=== PATIENT | male | born 1940 | race Hispanic/Latino ===

== ENCOUNTER 2017-10-22 08:00 | Inpatient (IN) | payer OTHER, MEDICARE ==
[2017-10-18 10:06] VITALS: BP 123/51
[2017-10-18 10:13] LABS: BASOPHILS % (AUTO) 0.5 % (0.0-5.0); EOSINOPHILS % (AUTO) 2.7 % (0.0-8.0); HEMATOCRIT 40.9 % (42-54); LYMPHOCYTES % (AUTO) 20.2 % (21.0-51.0); MEAN CORPUSCULAR HEMOGLOBIN 33.1 pg (27.0-33.0); MEAN CORPUSCULAR HGB CONC 37.1 g/dL (32.0-36.0); MEAN CORPUSCULAR VOLUME 89.1 fL (79-99); MONOCYTES % (AUTO) 6.3 % (3.0-13.0); NEUTROPHILS % (AUTO) 70.3 % (40.0-77.0); NUCLEATED RED BLOOD CELLS 0.1 % (0.0-0.19); PLATELET COUNT (AUTO) 128 K/uL (130-400); RED BLOOD CELL COUNT(AUTO) 4.59 MIL/uL (4.50-6.20); RED CELL DISTRIBUTION WIDTH 13.7 % (11.0-15.5); WHITE BLOOD COUNT (AUTO) 7.3 K/uL (4.8-10.8)
[2017-10-18 10:19] LABS: CREATININE 0.8 mg/dL (0.5-1.5); POTASSIUM 4.2 mmol/L (3.5-5.1)
[2017-10-18 10:46] LABS: INR 0.98 (0.85-1.15); PARTIAL THROMBOPLASTIN TIME 29.8 SEC (26.3-35.5); PROTHROMBIN TIME 10.3 SEC (9.6-11.6)
[2017-10-18 11:06] LABS: APPEARANCE,URINE Clear (CLEAR); BILIRUBIN,URINE Negative (NEGATIVE); COLOR,URINE Yellow (YELLOW); GLUCOSE, URINE (UA) Negative (NEGATIVE); KETONES,URINE Negative (NEGATIVE); LEUKOCYTE ESTERASE ,URINE Negative (NEGATIVE); NITRATE,URINE Negative (NEGATIVE); OCCULT BLOOD,URINE Negative (NEGATIVE); PROTEIN,URINE Negative (NEGATIVE)
[2017-10-22] VITALS (10 sets, daily range): BP systolic 109–130; BP diastolic 44–80
[~2017-10-22] VITALS: Ht 167.6 cm; Wt 77.2 kg
[~2017-10-22 08:00] MED LIST: ALFU10TA18 PO; ASPI-1181 PO; ATOR40TA71 PO; DEXAMETHASONE SOD PHOSPHATE 10MG/ML 1ML VIAL ONE; FENTANYL CITRATE PF 50 MCG/1 ML 2ML VIAL ONE; FINA5TAB41 PO; GLYB5TAB8 PO; GLYCOPYRROLATE 0.2 MG/ML 5 ML VIAL ONE; LIDOCAINE PF 2% 5ML ABBOJECT ONE; LISI30TA4 PO; METF500T6 PO; MIDAZOLAM HCL 1 MG/ML 2ML VIAL ONE; NEOSTIGMINE 5MG/5ML SYR IV ONE; ONDANSETRON HCL 4 MG/2 ML VIAL ONE; PROPOFOL 10 MG/ML 20ML VIAL IV ONE; SITA100T12 PO; TAMS0.4C32 PO
[2017-10-22] MEDS ORDERED: SODIUM CHLORIDE 0.9% 1000ML 1,000 ML IV ONE (08:54)
[2017-10-22] MEDS ORDERED: INSULIN HUMULIN R 100 UNIT/ML 3ML SQ SCH (09:30)
[2017-10-22] MEDS ORDERED: INSULIN HUMULIN R 100 UNIT/ML 3ML ONE (09:46)
[2017-10-22] MEDS ORDERED: ALBUMIN (HUMAN) 25% 50 ML IV ONE (12:00)
[2017-10-22] MEDS ORDERED: HEPARIN SODIUM 1000UNIT/ML 10ML VIAL IV ONE (12:00)
[2017-10-22] MEDS ORDERED: CALCIUM CHLORIDE 100 MG/ML 10 ML SYG IVP ONE (12:00)
[2017-10-22] MEDS ORDERED: AMINOCAPROIC ACID 250 MG/ML 20 ML VIAL IV ONE (12:00)
[2017-10-22] MEDS ORDERED: SODIUM BICARB 8.4% 50ML SYRINGE IVP ONE (12:00)
[2017-10-22] MEDS ORDERED: MAGNESIUM SULFATE 1 GM/2 ML VIAL IM ONE (12:00)
[2017-10-22] MEDS ORDERED: ISOVUE-370 50ML VIAL IV ONE (16:29)
[2017-10-22] MEDS ORDERED: NITROGLYCERIN 5 MG/ML 10 ML VIAL IV ONE (16:29)
[2017-10-22] MEDS ORDERED: LIDOCAINE HCL 2% 20ML ONE (16:29)
[2017-10-22] MEDS ORDERED: IOPAMIDOL-370 100 ML VIAL IV ONE (16:29)
[2017-10-22] MEDS ORDERED: HEPARIN SODIUM 1000UNIT/ML 10ML VIAL ONE (16:29)
[2017-10-22] MEDS ORDERED: DiphenhydrAMINE HCL 50 MG/ML VIAL ONE (16:56)
[2017-10-22] MEDS ORDERED: METHYLPREDNISOLONE SOD SUCC 125MG/2ML VIAL ONE (16:56)
[2017-10-22] MEDS ORDERED: SODIUM CHLORIDE 0.9% 1000ML 1,000 ML IV SCH ×2 (17:23→18:00)
[2017-10-22] MEDS ORDERED: DEXTROSE 50%-WATER 50 ML DISP.SYRIN IV PRN ×2 (18:30→22:00)
[2017-10-22] MEDS ORDERED: GLUCAGON 1MG KIT 1 MG ML IM PRN (18:30)
[2017-10-23] MEDS: INSULIN HUMULIN R 100 UNIT/ML 3ML SQ SCH ×4 (00:23→22:19)
[2017-10-23 04:28] VITALS: BP 111/63
[2017-10-23 07:00] VITALS: BP 132/63
[2017-10-23 09:57] LABS: HEMOGLOBIN A1C 5.9 % (4.0-6.0)
[2017-10-23 10:55] LABS: CREATININE 0.9 mg/dL (0.5-1.5); POTASSIUM 4.1 mmol/L (3.5-5.1)
[2017-10-23 11:00] VITALS: BP 137/59
[2017-10-23] MEDS ORDERED: CEFUROXIME SODIUM 1.5 GM VIAL IVP SCH (11:00)
[2017-10-23] MEDS: LINAGLIPTIN 5 MG TABLET PO SCH (11:06)
[2017-10-23 11:33] LABS: CHOLESTEROL 94 mg/dL (<200); HDL CHOLESTEROL 51 mg/dL (29-71); LDL DIRECT 41 mg/dL (0-99); TRIGLYCERIDES 47 mg/dL (30-200)
[2017-10-23 16:00] VITALS: BP 122/61
[2017-10-23 20:03] VITALS: BP 149/67
[2017-10-23] MEDS: FINASTERIDE 5 MG TABLET PO SCH (20:11)
[2017-10-23] MEDS: ATORVASTATIN CALCIUM 40 MG TABLET PO SCH (20:11)
[2017-10-23] MEDS: TAMSULOSIN HCL 0.4 MG CAP.ER.24H PO SCH (20:12)
[2017-10-23] MEDS: ***HM*** (Alfuzosin HCl 10 MG) PO SCH (21:00)
[2017-10-24] VITALS (12 sets, daily range): BP systolic 88–162; BP diastolic 42–97
[2017-10-24 03:54] LABS: HEMATOCRIT 36.1 % (42-54); MEAN CORPUSCULAR HEMOGLOBIN 33.9 pg (27.0-33.0); MEAN CORPUSCULAR HGB CONC 38.4 g/dL (32.0-36.0); MEAN CORPUSCULAR VOLUME 88.2 fL (79-99); PLATELET COUNT (AUTO) 132 K/uL (130-400); RED BLOOD CELL COUNT(AUTO) 4.09 MIL/uL (4.50-6.20); RED CELL DISTRIBUTION WIDTH 13.6 % (11.0-15.5); WHITE BLOOD COUNT (AUTO) 9.7 K/uL (4.8-10.8)
[2017-10-24 04:01] LABS: POTASSIUM 4.9 mmol/L (3.5-5.1)
[2017-10-24] MEDS ORDERED: CEFUROXIME SODIUM 1.5 GM VIAL IVP SCH (05:00)
[2017-10-24] MEDS: INSULIN HUMULIN R 100 UNIT/ML 3ML SQ SCH ×4 (06:01→20:16)
[2017-10-24] MEDS: ASPIRIN 81 MG EC TAB PO SCH (09:00)
[2017-10-24] MEDS ORDERED: LISINOPRIL 10 MG TABLET PO SCH (09:00)
[2017-10-24] MEDS ORDERED: CEFUROXIME 1.5GM+NS 100ML 100 ML IV SCH (11:00)
[2017-10-24] MEDS: LINAGLIPTIN 5 MG TABLET PO SCH (12:00)
[2017-10-24] MEDS ORDERED: SODIUM CHLORIDE 0.9% 1000ML 1,000 ML IV ONE ×2 (13:26→16:56)
[2017-10-24] MEDS ORDERED: MIDAZOLAM HCL 1 MG/ML 2ML VIAL ONE (13:48)
[2017-10-24] MEDS ORDERED: FENTANYL CITRATE PF 50 MCG/1 ML 2ML VIAL ONE (13:49)
[2017-10-24] MEDS ORDERED: PROPOFOL 1000 MG/100 ML 100 ML IV ONE (13:50)
[2017-10-24] MEDS ORDERED: NOREPINEPHRINE BITARTRATE 1 MG/1 ML ML IV ONE ×2 (13:51→15:07)
[2017-10-24] MEDS ORDERED: GLYCOPYRROLATE 0.2 MG/ML 5 ML VIAL ONE (13:51)
[2017-10-24] MEDS ORDERED: AMINOCAPROIC ACID 250 MG/ML 20 ML VIAL IV ONE (13:51)
[2017-10-24] MEDS ORDERED: ROCURONIUM BROMIDE 10MG/1ML 5ML VL ONE (13:51)
[2017-10-24] MEDS ORDERED: PROTAMINE SULFATE 10 MG/ML 25ML VIAL IV ONE (13:51)
[2017-10-24] MEDS ORDERED: PROPOFOL 10 MG/ML 20ML VIAL IV ONE (13:51)
[2017-10-24] MEDS ORDERED: NEOSTIGMINE 5MG/5ML SYR IV ONE (13:51)
[2017-10-24] MEDS ORDERED: LIDOCAINE PF 2% 5ML ABBOJECT ONE (13:51)
[2017-10-24] MEDS ORDERED: ESMOLOL HCL 10 MG/ML 10 ML VIAL ONE (13:51)
[2017-10-24] MEDS ORDERED: HEPARIN SODIUM 1000UNIT/ML 10ML VIAL ONE (13:51)
[2017-10-24] MEDS ORDERED: MILRINONE-D5W 20 MG/100 ML 100 ML IV ONE (13:51)
[2017-10-24] MEDS ORDERED: EPINEPHRINE 1 MG/ML AMPULE ONE (13:51)
[2017-10-24] MEDS ORDERED: MIDAZOLAM HCL 1 MG/ML 5ML VIAL ONE (13:52)
[2017-10-24] MEDS ORDERED: NITROGLYCERIN 50 MG/D5% WATER 1 BOT ONE (13:55)
[2017-10-24] MEDS ORDERED: THROMBIN-JMI 5000 UNIT/VIAL TP ONE (14:31)
[2017-10-24] MEDS ORDERED: DELNIDO FORMULA 1 BAG IV ONE ×2 (14:32)
[2017-10-24] MEDS ORDERED: OCTYL 2-CYANOACRYLATE 1 EACH TP ONE (14:50)
[2017-10-24] MEDS ORDERED: BACITRACIN 50,000 UNIT VIAL ONE (14:50)
[2017-10-24 15:00] LABS: ABG BASE EXCESS -3.5 mmol/L (-2.0-3.0); ABG HCO3 20.2 mmol/L (21.0-28.0); ABG OXYGEN SATURATION 98.9 % (95.0-99.0); ABG PCO2 33 mmHg (35-48)
[2017-10-24] MEDS ORDERED: FENTANYL CITRATE PF 50 MCG/1 ML 5ML AMP IV ONE ×3 (15:00→17:20)
[2017-10-24 16:11] LABS: ABG BASE EXCESS -5.9 mmol/L (-2.0-3.0); ABG HCO3 21.1 mmol/L (21.0-28.0); ABG OXYGEN SATURATION 98.8 % (95.0-99.0); ABG PCO2 48 mmHg (35-48)
[2017-10-24 16:31] LABS: ABG BASE EXCESS 7.5 mmol/L (-2.0-3.0); ABG OXYGEN SATURATION 98.9 % (95.0-99.0); ABG PCO2 44 mmHg (35-48)
[2017-10-24] MEDS ORDERED: INSULIN HUMULIN R 100 UNIT/ML 3ML ONE (16:38)
[2017-10-24 17:03] LABS: ABG BASE EXCESS 1.9 mmol/L (-2.0-3.0); ABG HCO3 25.2 mmol/L (21.0-28.0); ABG OXYGEN SATURATION 98.5 % (95.0-99.0); ABG PCO2 35 mmHg (35-48)
[2017-10-24] MEDS ORDERED: CEFUROXIME SODIUM 1.5 GM VIAL ONE (17:44)
[2017-10-24 17:47] LABS: ABG BASE EXCESS -5.1 mmol/L (-2.0-3.0); ABG HCO3 20.1 mmol/L (21.0-28.0); ABG OXYGEN SATURATION 99.3 % (95.0-99.0); ABG PCO2 38 mmHg (35-48)
[2017-10-24] MEDS ORDERED: SODIUM BICARB 50MEQ 50ML VIAL ONE ×3 (17:49→21:51)
[2017-10-24] MEDS ORDERED: PROTAMINE SULFATE 10 MG/ML 5 ML VIAL ONE (17:52)
[2017-10-24 18:45] LABS: ABG BASE EXCESS -0.3 mmol/L (-2.0-3.0); ABG HCO3 23.1 mmol/L (21.0-28.0); ABG OXYGEN SATURATION 97.6 % (95.0-99.0); ABG PCO2 34 mmHg (35-48)
[2017-10-24] MEDS ORDERED: SODIUM CHLORIDE 0.9% 500ML 500 ML IV SCH (18:48)
[2017-10-24 18:51] LABS: HEMATOCRIT 32.9 % (42-54); MEAN CORPUSCULAR HEMOGLOBIN 33.5 pg (27.0-33.0); MEAN CORPUSCULAR HGB CONC 37.6 g/dL (32.0-36.0); PLATELET COUNT (AUTO) 131 K/uL (130-400); RED CELL DISTRIBUTION WIDTH 13.7 % (11.0-15.5); WHITE BLOOD COUNT (AUTO) 22.3 K/uL (4.8-10.8)
[2017-10-24] MEDS ORDERED: SODIUM CHLORIDE 0.9% 250 ML IV PRN (19:00)
[2017-10-24] MEDS ORDERED: MORPHINE SULFATE 2 MG/ML 1ML SYG IV PRN (19:00)
[2017-10-24] MEDS ORDERED: SODIUM BICARB 8.4% 50ML SYRINGE IV PRN (19:00)
[2017-10-24] MEDS ORDERED: ALBUMIN (HUMAN) 5% 250 ML IV PRN (19:00)
[2017-10-24] MEDS ORDERED: MAGNESIUM 2GM PREMIX 50ML 50 ML IV PRN (19:00)
[2017-10-24] MEDS ORDERED: ACETAMINOPHEN 650 MG SUPPOSITORY RC PRN (19:00)
[2017-10-24] MEDS ORDERED: ONDANSETRON HCL MDV 20ML 2 MG/ML VIAL IV PRN (19:00)
[2017-10-24] MEDS ORDERED: SODIUM CHLORIDE 0.9% 1000ML 1,000 ML IV SCH (19:00)
[2017-10-24] MEDS ORDERED: DEXTROSE 50%-WATER 50 ML DISP.SYRIN IV PRN (19:00)
[2017-10-24] MEDS ORDERED: ACETAMINOPHEN 325 MG TAB PO PRN (19:00)
[2017-10-24] MEDS ORDERED: MORPHINE SULFATE 4 MG/1ML SYG IV PRN (19:00)
[2017-10-24] MEDS ORDERED: CALCIUM GLUCONATE 1 GM in SODIUM CHLORIDE 0.9% 50 ML IV PRN (19:00)
[2017-10-24] MEDS ORDERED: NICARDIPINE HCL 100 MG in SODIUM CHLORIDE 0.9% 100 ML IV PRN (19:00)
[2017-10-24] MEDS ORDERED: PROPOFOL 1000 MG/100 ML 100 ML IV PRN (19:00)
[2017-10-24] MEDS ORDERED: NITROGLYCERIN 50 MG/D5% WATER 250 BOT IV SCH (19:00)
[2017-10-24] MEDS ORDERED: POTASSIUM PHOS 15 mMOL+NS250ML 250 ML IV PRN (19:00)
[2017-10-24] MEDS ORDERED: AMINOCAPROIC ACID 15,000 MG in SODIUM CHLORIDE 0.9% 250 ML IV SCH (19:00)
[2017-10-24] MEDS ORDERED: NOREPINEPHRINE 4MG/NS 250ML 250 ML IV SCH (19:00)
[2017-10-24] MEDS ORDERED: HYDROCODONE/ACETAMINOPHEN 5/325 MG TAB PO PRN (19:00)
[2017-10-24] MEDS ORDERED: SODIUM CHLORIDE 0.9% 10 ML VIAL IVP PRN (19:00)
[2017-10-24] MEDS ORDERED: GLUCAGON 1MG KIT 1 MG ML IM PRN (19:00)
[2017-10-24 19:03] LABS: CREATININE 0.8 mg/dL (0.5-1.5); MAGNESIUM 2.9 mg/dL (1.80-2.40); PHOSPHORUS 3.9 mg/dL (2.5-4.9); POTASSIUM 3.8 mmol/L (3.5-5.1)
[2017-10-24] MEDS ORDERED: POTASSIUM CHLORIDE 20MEQ/100ML 100 ML IV ONE (19:03)
[2017-10-24 19:59] LABS: ABG HCO3 24.8 mmol/L (21.0-28.0); ABG OXYGEN SATURATION 97.2 % (95.0-99.0); ABG PCO2 37 mmHg (35-48)
[2017-10-24] MEDS: INSULIN REGULAR, HUMAN 3ML 100 UNIT in SODIUM CHLORIDE 0.9% 99 ML IV SCH ×2 (20:14)
[2017-10-24] MEDS: FAMOTIDINE/PF 20 MG/2 ML VIAL IV SCH (20:15)
[2017-10-24] MEDS: TAMSULOSIN HCL 0.4 MG CAP.ER.24H PO SCH (20:15)
[2017-10-24] MEDS: ***HM*** (Alfuzosin HCl 10 MG) PO SCH (20:15)
[2017-10-24] MEDS: FINASTERIDE 5 MG TABLET PO SCH (20:16)
[2017-10-24] MEDS: ATORVASTATIN CALCIUM 40 MG TABLET PO SCH (20:16)
[2017-10-24] MEDS ORDERED: ALBUMIN (HUMAN) 5% 250 ML IV ONE (21:39)
[2017-10-24 21:50] LABS: ABG BASE EXCESS -2.7 mmol/L (-2.0-3.0); ABG HCO3 21.4 mmol/L (21.0-28.0); ABG OXYGEN SATURATION 97.7 % (95.0-99.0); ABG PCO2 35 mmHg (35-48)
[2017-10-24] MEDS ORDERED: CALCIUM GLUCONATE 1 GM/10 ML VIAL IV ONE (21:51)
[2017-10-24] MEDS: POTASSIUM CHLORIDE 20MEQ/100ML 100 ML IV PRN (23:27)
[2017-10-24 23:55] LABS: ABG BASE EXCESS -2.9 mmol/L (-2.0-3.0); ABG HCO3 21.8 mmol/L (21.0-28.0); ABG OXYGEN SATURATION 97.8 % (95.0-99.0); ABG PCO2 38 mmHg (35-48)
[2017-10-25] VITALS (28 sets, daily range): BP systolic 101–156; BP diastolic 39–69
[2017-10-25] MEDS: POTASSIUM CHLORIDE 20MEQ/100ML 100 ML IV PRN
[2017-10-25 01:18] LABS: ABG BASE EXCESS -5.1 mmol/L (-2.0-3.0); ABG HCO3 18.9 mmol/L (21.0-28.0); ABG OXYGEN SATURATION 97.3 % (95.0-99.0); ABG PCO2 32 mmHg (35-48)
[2017-10-25] MEDS ORDERED: SODIUM BICARB 50MEQ 50ML VIAL ONE (01:19)
[2017-10-25] MEDS ORDERED: ALBUMIN (HUMAN) 5% 250 ML IV ONE (01:52)
[2017-10-25] MEDS: CEFUROXIME SODIUM 1.5 GM VIAL IVP SCH ×2 (03:16→15:03)
[2017-10-25] MEDS ORDERED: [UNRECOGNIZED DRUG - OTHER] IV SCH (04:00)
[2017-10-25] MEDS ORDERED: CEFUROXIME 1.5 GM IV SCH (04:00)
[2017-10-25 04:06] LABS: HEMATOCRIT 28.6 % (42-54); MEAN CORPUSCULAR HEMOGLOBIN 32.4 pg (27.0-33.0); MEAN CORPUSCULAR HGB CONC 37.1 g/dL (32.0-36.0); MEAN CORPUSCULAR VOLUME 87.3 fL (79-99); PLATELET COUNT (AUTO) 114 K/uL (130-400); RED BLOOD CELL COUNT(AUTO) 3.27 MIL/uL (4.50-6.20); RED CELL DISTRIBUTION WIDTH 13.8 % (11.0-15.5); WHITE BLOOD COUNT (AUTO) 21.1 K/uL (4.8-10.8)
[2017-10-25 04:16] LABS: MAGNESIUM 2.3 mg/dL (1.80-2.40); PHOSPHORUS 2.5 mg/dL (2.5-4.9); POTASSIUM 4.5 mmol/L (3.5-5.1)
[2017-10-25 04:56] LABS: ABG BASE EXCESS 4.3 mmol/L (-2.0-3.0); ABG HCO3 27.9 mmol/L (21.0-28.0); ABG OXYGEN SATURATION 96.4 % (95.0-99.0); ABG PCO2 38 mmHg (35-48)
[2017-10-25] MEDS ORDERED: CALCIUM GLUCONATE 1 GM/10 ML VIAL IV ONE (06:08)
[2017-10-25] MEDS: INSULIN HUMULIN R 100 UNIT/ML 3ML SQ SCH ×4 (07:30→21:00)
[2017-10-25] MEDS: ASPIRIN 81 MG EC TAB PO SCH (08:30)
[2017-10-25] MEDS: HYDROCODONE/ACETAMINOPHEN 5/325 MG TAB PO PRN ×4 (08:30→22:26)
[2017-10-25] MEDS: FAMOTIDINE/PF 20 MG/2 ML VIAL IV SCH ×2 (08:32→20:24)
[2017-10-25] MEDS: INSULIN REGULAR, HUMAN 3ML 100 UNIT in SODIUM CHLORIDE 0.9% 99 ML IV SCH ×2 (14:59)
[2017-10-25] MEDS: FINASTERIDE 5 MG TABLET PO SCH (20:24)
[2017-10-25] MEDS: TAMSULOSIN HCL 0.4 MG CAP.ER.24H PO SCH (20:24)
[2017-10-25] MEDS: ATORVASTATIN CALCIUM 40 MG TABLET PO SCH (20:24)
[2017-10-25] MEDS: ***HM*** (Alfuzosin HCl 10 MG) PO SCH (21:00)
[2017-10-26] VITALS (22 sets, daily range): BP systolic 95–154; BP diastolic 41–98
[2017-10-26] MEDS ORDERED: METOPROLOL TARTRATE 1 MG/ML 5ML VIAL IV ONE ×2 (03:38→03:52)
[2017-10-26] MEDS ORDERED: DEXTROSE 5%-WATER 500 ML IV ONE (03:54)
[2017-10-26 04:04] LABS: CREATININE 0.8 mg/dL (0.5-1.5); POTASSIUM 4.2 mmol/L (3.5-5.1)
[2017-10-26 04:18] LABS: MEAN CORPUSCULAR VOLUME 89.1 fL (79-99); RED CELL DISTRIBUTION WIDTH 13.9 % (11.0-15.5); WHITE BLOOD COUNT (AUTO) 13.8 K/uL (4.8-10.8)
[2017-10-26] MEDS ORDERED: AMIODARONE HCL 150 MG in DEXTROSE 5%-WATER 100 ML IV SCH (04:30)
[2017-10-26] MEDS ORDERED: AMIODARONE HCL 900 MG in DEXTROSE 5%-WATER 500 ML IV SCH (04:30)
[2017-10-26] MEDS ORDERED: METOPROLOL TARTRATE 1 MG/ML 5ML VIAL IV SCH (04:30)
[2017-10-26] MEDS: METOPROLOL TARTRATE 1 MG/ML 5ML VIAL IV SCH (04:30)
[2017-10-26] MEDS ORDERED: AMIODARONE HCL 50 MG/ML 3 ML VIAL ONE (04:38)
[2017-10-26] MEDS ORDERED: SODIUM CHLORIDE 0.9% 100 ML IV ONE (04:53)
[2017-10-26 05:01] LABS: PLATELET COUNT (AUTO) 96 K/uL (130-400)
[2017-10-26] MEDS: CEFUROXIME SODIUM 1.5 GM VIAL IVP SCH (05:10)
[2017-10-26] MEDS: INSULIN HUMULIN R 100 UNIT/ML 3ML SQ SCH ×4 (07:30→21:00)
[2017-10-26] MEDS: FAMOTIDINE/PF 20 MG/2 ML VIAL IV SCH ×2 (08:06→20:55)
[2017-10-26] MEDS: METOPROLOL TARTRATE 25 MG TAB PO SCH ×2 (08:06→20:55)
[2017-10-26] MEDS: ASPIRIN 81 MG EC TAB PO SCH (08:06)
[2017-10-26] MEDS: TAMSULOSIN HCL 0.4 MG CAP.ER.24H PO SCH (20:55)
[2017-10-26] MEDS: FINASTERIDE 5 MG TABLET PO SCH (20:55)
[2017-10-26] MEDS: ATORVASTATIN CALCIUM 40 MG TABLET PO SCH (20:55)
[2017-10-26] MEDS: ***HM*** (Alfuzosin HCl 10 MG) PO SCH (21:00)
[2017-10-27 04:05] VITALS: BP 109/54
[2017-10-27 04:25] LABS: HEMATOCRIT 22.6 % (42-54); MEAN CORPUSCULAR HEMOGLOBIN 32.5 pg (27.0-33.0); MEAN CORPUSCULAR HGB CONC 36.2 g/dL (32.0-36.0); MEAN CORPUSCULAR VOLUME 89.9 fL (79-99); PLATELET COUNT (AUTO) 42 K/uL (130-400); RED BLOOD CELL COUNT(AUTO) 2.51 MIL/uL (4.50-6.20); RED CELL DISTRIBUTION WIDTH 13.2 % (11.0-15.5); WHITE BLOOD COUNT (AUTO) 13.1 K/uL (4.8-10.8)
[2017-10-27] MEDS: METOPROLOL TARTRATE 1 MG/ML 5ML VIAL IV SCH (04:30)
[2017-10-27 04:40] LABS: CREATININE 0.8 mg/dL (0.5-1.5)
[2017-10-27] MEDS: INSULIN HUMULIN R 100 UNIT/ML 3ML SQ SCH ×4 (06:49→21:32)
[2017-10-27 07:01] VITALS: BP 115/53
[2017-10-27] MEDS: METOPROLOL TARTRATE 25 MG TAB PO SCH ×2 (09:00→21:30)
[2017-10-27] MEDS: ASPIRIN 81 MG EC TAB PO SCH (09:00)
[2017-10-27 11:00] VITALS: BP 122/62
[2017-10-27] MEDS: AMIODARONE HCL 200 MG TABLET PO SCH ×2 (14:22→21:30)
[2017-10-27 16:01] VITALS: BP 125/63
[2017-10-27] MEDS: HYDROCODONE/ACETAMINOPHEN 5/325 MG TAB PO PRN (17:55)
[2017-10-27 19:41] VITALS: BP 117/73
[2017-10-27] MEDS: ***HM*** (Alfuzosin HCl 10 MG) PO SCH (21:00)
[2017-10-27] MEDS: ATORVASTATIN CALCIUM 40 MG TABLET PO SCH (21:30)
[2017-10-27] MEDS: TAMSULOSIN HCL 0.4 MG CAP.ER.24H PO SCH (21:30)
[2017-10-27] MEDS: FINASTERIDE 5 MG TABLET PO SCH (21:30)
[2017-10-27 23:33] VITALS: BP 118/59
[2017-10-28 03:39] VITALS: BP 102/65
[2017-10-28] MEDS: METOPROLOL TARTRATE 1 MG/ML 5ML VIAL IV SCH (04:30)
[2017-10-28 04:33] LABS: HEMATOCRIT 22.8 % (42-54); MEAN CORPUSCULAR HEMOGLOBIN 34.3 pg (27.0-33.0); MEAN CORPUSCULAR HGB CONC 38.6 g/dL (32.0-36.0); MEAN CORPUSCULAR VOLUME 88.9 fL (79-99); NUCLEATED RED BLOOD CELLS 0.1 % (0.0-0.19); PLATELET COUNT (AUTO) 50 K/uL (130-400); RED BLOOD CELL COUNT(AUTO) 2.56 MIL/uL (4.50-6.20); RED CELL DISTRIBUTION WIDTH 13.5 % (11.0-15.5); WHITE BLOOD COUNT (AUTO) 10.5 K/uL (4.8-10.8)
[2017-10-28 04:43] LABS: BAND NEUTROPHILS % (MANUAL) 3 % (0-2); EOSINOPHILS % (MANUAL) 1 % (1-6); LYMPHOCYTES % (MANUAL) 11 % (22-44); MAN.DIFF COMMENT-IMPRESSION MANUAL DIFFERENTIAL; MONOCYTES % (MANUAL) 8 % (2-9); PLATELET MORPHOLOGY COMMENT MARKED DECREASED; SEGMENTED NEUTROPHILS % 77 % (40-70)
[2017-10-28 04:46] LABS: CREATININE 0.8 mg/dL (0.5-1.5); MAGNESIUM 1.9 mg/dL (1.80-2.40); PHOSPHORUS 2.5 mg/dL (2.5-4.9); POTASSIUM 3.4 mmol/L (3.5-5.1)
[2017-10-28] MEDS: INSULIN HUMULIN R 100 UNIT/ML 3ML SQ SCH ×4 (06:52→22:11)
[2017-10-28 08:05] VITALS: BP 125/56
[2017-10-28] MEDS: PANTOPRAZOLE SODIUM 40 MG TABLET.DR PO SCH (08:34)
[2017-10-28] MEDS: POTASSIUM CHLORIDE 20 MEQ ERTAB PO SCH ×3 (08:34→22:07)
[2017-10-28] MEDS: METOPROLOL TARTRATE 25 MG TAB PO SCH ×2 (08:34→22:06)
[2017-10-28] MEDS: AMIODARONE HCL 200 MG TABLET PO SCH ×3 (08:34→22:07)
[2017-10-28] MEDS: FUROSEMIDE 20 MG TABLET PO SCH (08:35)
[2017-10-28] MEDS: HYDROCODONE/ACETAMINOPHEN 5/325 MG TAB PO PRN (08:46)
[2017-10-28 11:57] VITALS: BP 126/56
[2017-10-28 16:30] VITALS: BP 127/56
[2017-10-28 19:49] VITALS: BP 112/52
[2017-10-28] MEDS: ***HM*** (Alfuzosin HCl 10 MG) PO SCH (21:00)
[2017-10-28] MEDS: TAMSULOSIN HCL 0.4 MG CAP.ER.24H PO SCH (22:06)
[2017-10-28] MEDS: FINASTERIDE 5 MG TABLET PO SCH (22:06)
[2017-10-28] MEDS: ATORVASTATIN CALCIUM 40 MG TABLET PO SCH (22:07)
[2017-10-28 23:27] VITALS: BP 149/63
[2017-10-29] VITALS (7 sets, daily range): BP systolic 100–134; BP diastolic 48–63
[2017-10-29] MEDS: METOPROLOL TARTRATE 1 MG/ML 5ML VIAL IV SCH (04:30)
[2017-10-29 04:48] LABS: HEMATOCRIT 23.6 % (42-54); MEAN CORPUSCULAR HEMOGLOBIN 32.8 pg (27.0-33.0); MEAN CORPUSCULAR HGB CONC 36.6 g/dL (32.0-36.0); MEAN CORPUSCULAR VOLUME 89.7 fL (79-99); PLATELET COUNT (AUTO) 97 K/uL (130-400); RED BLOOD CELL COUNT(AUTO) 2.63 MIL/uL (4.50-6.20); RED CELL DISTRIBUTION WIDTH 13.6 % (11.0-15.5)
[2017-10-29 05:13] LABS: CREATININE 0.8 mg/dL (0.5-1.5); POTASSIUM 4.1 mmol/L (3.5-5.1)
[2017-10-29] MEDS: INSULIN HUMULIN R 100 UNIT/ML 3ML SQ SCH ×4 (07:30→22:22)
[2017-10-29] MEDS: POTASSIUM CHLORIDE 20 MEQ ERTAB PO SCH ×2 (09:00→09:07)
[2017-10-29] MEDS: PANTOPRAZOLE SODIUM 40 MG TABLET.DR PO SCH (09:06)
[2017-10-29] MEDS: FUROSEMIDE 20 MG TABLET PO SCH (09:06)
[2017-10-29] MEDS: METOPROLOL TARTRATE 25 MG TAB PO SCH ×2 (09:07→22:18)
[2017-10-29] MEDS: AMIODARONE HCL 200 MG TABLET PO SCH ×2 (09:08→22:17)
[2017-10-29 14:53] LABS: INR 0.95 (0.85-1.15)
[2017-10-29] MEDS: TRAMADOL HCL 50 MG TABLET PO PRN (17:47)
[2017-10-29 19:37] LABS: HEMATOCRIT 26.4 % (42-54); MEAN CORPUSCULAR HGB CONC 36.8 g/dL (32.0-36.0); MEAN CORPUSCULAR VOLUME 89.7 fL (79-99); NUCLEATED RED BLOOD CELLS 0.2 % (0.0-0.19); PLATELET COUNT (AUTO) 117 K/uL (130-400); RED BLOOD CELL COUNT(AUTO) 2.95 MIL/uL (4.50-6.20); RED CELL DISTRIBUTION WIDTH 13.6 % (11.0-15.5); WHITE BLOOD COUNT (AUTO) 13.3 K/uL (4.8-10.8)
[2017-10-29] MEDS: KETOROLAC TROMETHAMINE 30MG/ML IV SCH (19:57)
[2017-10-29] MEDS: ***HM*** (Alfuzosin HCl 10 MG) PO SCH (21:00)
[2017-10-29] MEDS: TAMSULOSIN HCL 0.4 MG CAP.ER.24H PO SCH (22:17)
[2017-10-29] MEDS: ATORVASTATIN CALCIUM 40 MG TABLET PO SCH (22:17)
[2017-10-29] MEDS: FINASTERIDE 5 MG TABLET PO SCH (22:17)
[2017-10-30] VITALS (21 sets, daily range): BP systolic 81–116; BP diastolic 34–69
[2017-10-30] MEDS: KETOROLAC TROMETHAMINE 30MG/ML IV SCH ×2 (02:16→08:14)
[2017-10-30] MEDS: METOPROLOL TARTRATE 1 MG/ML 5ML VIAL IV SCH ×2 (02:17→22:00)
[2017-10-30 03:47] LABS: MEAN CORPUSCULAR HEMOGLOBIN 32.4 pg (27.0-33.0); MEAN CORPUSCULAR VOLUME 89.9 fL (79-99); PLATELET COUNT (AUTO) 100 K/uL (130-400); RED BLOOD CELL COUNT(AUTO) 2.67 MIL/uL (4.50-6.20); RED CELL DISTRIBUTION WIDTH 13.7 % (11.0-15.5); WHITE BLOOD COUNT (AUTO) 14.8 K/uL (4.8-10.8)
[2017-10-30] MEDS: INSULIN HUMULIN R 100 UNIT/ML 3ML SQ SCH ×4 (07:57→21:58)
[2017-10-30] MEDS: METOPROLOL TARTRATE 25 MG TAB PO SCH ×2 (08:14→21:52)
[2017-10-30] MEDS: ASPIRIN 81MG TAB.CHEW PO SCH (08:15)
[2017-10-30] MEDS: AMIODARONE HCL 200 MG TABLET PO SCH (08:15)
[2017-10-30] MEDS: FUROSEMIDE 20 MG TABLET PO SCH (08:16)
[2017-10-30] MEDS: PANTOPRAZOLE SODIUM 40 MG TABLET.DR PO SCH (08:16)
[2017-10-30] MEDS: POTASSIUM CHLORIDE 20 MEQ ERTAB PO SCH (08:21)
[2017-10-30 10:28] LABS: CREATININE 1.2 mg/dL (0.5-1.5); POTASSIUM 4.6 mmol/L (3.5-5.1)
[2017-10-30] MEDS: TRAMADOL HCL 50 MG TABLET PO PRN ×2 (13:44→17:35)
[2017-10-30] MEDS ORDERED: DIGOXIN 250 MCG/ML 2ML AMP ONE ×2 (14:55→15:01)
[2017-10-30] MEDS ORDERED: SODIUM CHLORIDE 0.9% 1000ML 1,000 ML IV STA (14:55)
[2017-10-30] MEDS ORDERED: DIGOXIN 250 MCG/ML 2ML AMP IV STA (15:05)
[2017-10-30] MEDS ORDERED: METOPROLOL TARTRATE 1 MG/ML 5ML VIAL IV STA (15:05)
[2017-10-30] MEDS ORDERED: SODIUM CHLORIDE 0.9% 250 ML IV SCH (15:15)
[2017-10-30] MEDS: GLYBURIDE 5 MG TABLET PO SCH (17:34)
[2017-10-30] MEDS: METFORMIN HCL 500 MG TABLET PO SCH (17:34)
[2017-10-30] MEDS ORDERED: DIGOXIN 250 MCG/ML 2ML AMP IV ONE (17:45)
[2017-10-30] MEDS: AMIODARONE HCL 900 MG in DEXTROSE 5%-WATER 500 ML IV SCH (18:15)
[2017-10-30] MEDS ORDERED: AMIODARONE HCL 150 MG in DEXTROSE 5%-WATER 100 ML IV SCH (20:00)
[2017-10-30] MEDS ORDERED: METFORMIN HCL 500 MG TABLET PO SCH (21:00)
[2017-10-30] MEDS ORDERED: GLYBURIDE 5 MG TABLET PO SCH (21:00)
[2017-10-30] MEDS: ***HM*** (Alfuzosin HCl 10 MG) PO SCH (21:00)
[2017-10-30] MEDS: FINASTERIDE 5 MG TABLET PO SCH (21:52)
[2017-10-30] MEDS: ATORVASTATIN CALCIUM 40 MG TABLET PO SCH (21:52)
[2017-10-30] MEDS: TAMSULOSIN HCL 0.4 MG CAP.ER.24H PO SCH (21:52)
[2017-10-31 03:35] VITALS: BP 105/48
[2017-10-31 03:47] LABS: HEMATOCRIT 23.1 % (42-54); MEAN CORPUSCULAR HGB CONC 36.4 g/dL (32.0-36.0); MEAN CORPUSCULAR VOLUME 90.5 fL (79-99); NUCLEATED RED BLOOD CELLS 0.1 % (0.0-0.19); PLATELET COUNT (AUTO) 98 K/uL (130-400); RED BLOOD CELL COUNT(AUTO) 2.56 MIL/uL (4.50-6.20); RED CELL DISTRIBUTION WIDTH 13.8 % (11.0-15.5); WHITE BLOOD COUNT (AUTO) 12.9 K/uL (4.8-10.8)
[2017-10-31 03:51] LABS: POTASSIUM 3.8 mmol/L (3.5-5.1)
[2017-10-31 03:59] LABS: B-TYPE NATRIURETIC PEPTIDE 265 pg/mL (0-100)
[2017-10-31] MEDS: INSULIN HUMULIN R 100 UNIT/ML 3ML SQ SCH ×4 (06:38→20:45)
[2017-10-31 07:00] VITALS: BP 117/67
[2017-10-31] MEDS: PANTOPRAZOLE SODIUM 40 MG TABLET.DR PO SCH (10:03)
[2017-10-31] MEDS: METOPROLOL TARTRATE 25 MG TAB PO SCH ×2 (10:03→20:37)
[2017-10-31] MEDS: ASPIRIN 81MG TAB.CHEW PO SCH (10:03)
[2017-10-31] MEDS: GLYBURIDE 5 MG TABLET PO SCH ×2 (10:03→15:46)
[2017-10-31] MEDS: FUROSEMIDE 10 MG/ML 2ML VIAL IV SCH ×2 (10:03→17:01)
[2017-10-31] MEDS: POTASSIUM CHLORIDE 20 MEQ ERTAB PO SCH (10:04)
[2017-10-31 11:21] VITALS: BP 121/59
[2017-10-31 15:37] VITALS: BP 124/59
[2017-10-31] MEDS: METFORMIN HCL 500 MG TABLET PO SCH (15:45)
[2017-10-31] MEDS: TRAMADOL HCL 50 MG TABLET PO PRN (17:02)
[2017-10-31 19:48] VITALS: BP 126/68
[2017-10-31] MEDS: FINASTERIDE 5 MG TABLET PO SCH (20:37)
[2017-10-31] MEDS: TAMSULOSIN HCL 0.4 MG CAP.ER.24H PO SCH (20:37)
[2017-10-31] MEDS: ATORVASTATIN CALCIUM 40 MG TABLET PO SCH (20:37)
[2017-10-31] MEDS: ***HM*** (Alfuzosin HCl 10 MG) PO SCH (20:44)
[2017-10-31] MEDS: AMIODARONE HCL 900 MG in DEXTROSE 5%-WATER 500 ML IV SCH (21:54)
[2017-10-31 23:14] VITALS: BP 98/59
[2017-11-01 03:32] VITALS: BP 115/58
[2017-11-01 03:56] LABS: HEMATOCRIT 22.1 % (42-54); MEAN CORPUSCULAR HEMOGLOBIN 33.9 pg (27.0-33.0); MEAN CORPUSCULAR VOLUME 89.2 fL (79-99); NUCLEATED RED BLOOD CELLS 0.1 % (0.0-0.19); PLATELET COUNT (AUTO) 121 K/uL (130-400); RED BLOOD CELL COUNT(AUTO) 2.48 MIL/uL (4.50-6.20); WHITE BLOOD COUNT (AUTO) 11.8 K/uL (4.8-10.8)
[2017-11-01 04:03] LABS: POTASSIUM 3.8 mmol/L (3.5-5.1)
[2017-11-01] MEDS: INSULIN HUMULIN R 100 UNIT/ML 3ML SQ SCH ×4 (06:11→20:31)
[2017-11-01 07:30] VITALS: BP 100/53
[2017-11-01] MEDS: METOPROLOL TARTRATE 25 MG TAB PO SCH ×2 (07:45→20:23)
[2017-11-01] MEDS ORDERED: DIGOXIN 250 MCG/ML 2ML AMP ONE (08:19)
[2017-11-01] MEDS ORDERED: DIGOXIN 250 MCG/ML 2ML AMP IV SCH (08:30)
[2017-11-01] MEDS: AMIODARONE HCL 200 MG TABLET PO SCH ×2 (08:41→20:23)
[2017-11-01] MEDS: ASPIRIN 81MG TAB.CHEW PO SCH (09:00)
[2017-11-01 09:02] LABS: INR 0.97 (0.85-1.15); PARTIAL THROMBOPLASTIN TIME 37.8 SEC (26.3-35.5); PROTHROMBIN TIME 10.2 SEC (9.6-11.6)
[2017-11-01] MEDS: GLYBURIDE 5 MG TABLET PO SCH ×2 (09:33→16:05)
[2017-11-01] MEDS: PANTOPRAZOLE SODIUM 40 MG TABLET.DR PO SCH (09:34)
[2017-11-01] MEDS: POTASSIUM CHLORIDE 20 MEQ ERTAB PO SCH (09:35)
[2017-11-01] MEDS: FUROSEMIDE 10 MG/ML 2ML VIAL IV SCH ×2 (09:35→16:06)
[2017-11-01 11:15] VITALS: BP 114/47
[2017-11-01 15:34] VITALS: BP 156/47
[2017-11-01] MEDS: METFORMIN HCL 500 MG TABLET PO SCH (16:06)
[2017-11-01 19:27] VITALS: BP 128/50
[2017-11-01] MEDS: ***HM*** (Alfuzosin HCl 10 MG) PO SCH (19:33)
[2017-11-01] MEDS: FINASTERIDE 5 MG TABLET PO SCH (20:23)
[2017-11-01] MEDS: TAMSULOSIN HCL 0.4 MG CAP.ER.24H PO SCH (20:23)
[2017-11-01] MEDS: ATORVASTATIN CALCIUM 40 MG TABLET PO SCH (20:23)
[2017-11-01] MEDS ORDERED: LORAZEPAM 2 MG/ML 1 ML VIAL IVP PRN (21:30)
[2017-11-01] MEDS ORDERED: CHLORDIAZEPOXIDE HCL 25 MG CAP PO SCH (22:00)
[2017-11-01 23:30] VITALS: BP 106/59
[2017-11-02 03:50] LABS: HEMATOCRIT 22.6 % (42-54); MEAN CORPUSCULAR HEMOGLOBIN 32.3 pg (27.0-33.0); MEAN CORPUSCULAR HGB CONC 36.4 g/dL (32.0-36.0); MEAN CORPUSCULAR VOLUME 88.8 fL (79-99); PLATELET COUNT (AUTO) 139 K/uL (130-400); RED BLOOD CELL COUNT(AUTO) 2.54 MIL/uL (4.50-6.20); RED CELL DISTRIBUTION WIDTH 13.8 % (11.0-15.5); WHITE BLOOD COUNT (AUTO) 9.7 K/uL (4.8-10.8)
[2017-11-02 04:13] LABS: CREATININE 0.9 mg/dL (0.5-1.5); POTASSIUM 3.8 mmol/L (3.5-5.1)
[2017-11-02 04:20] VITALS: BP 103/49
[2017-11-02] MEDS: INSULIN HUMULIN R 100 UNIT/ML 3ML SQ SCH ×4 (06:16→21:02)
[2017-11-02 07:00] VITALS: BP 110/56
[2017-11-02] MEDS: GLYBURIDE 5 MG TABLET PO SCH ×2 (08:31→17:01)
[2017-11-02] MEDS: PANTOPRAZOLE SODIUM 40 MG TABLET.DR PO SCH (08:32)
[2017-11-02] MEDS: AMIODARONE HCL 200 MG TABLET PO SCH ×2 (08:32→20:52)
[2017-11-02] MEDS: METOPROLOL TARTRATE 25 MG TAB PO SCH ×2 (08:32→20:52)
[2017-11-02] MEDS: FUROSEMIDE 10 MG/ML 2ML VIAL IV SCH ×2 (08:32→17:02)
[2017-11-02] MEDS: ASPIRIN 81MG TAB.CHEW PO SCH (08:32)
[2017-11-02] MEDS: POTASSIUM CHLORIDE 20 MEQ ERTAB PO SCH (08:33)
[2017-11-02 11:00] VITALS: BP 116/55
[2017-11-02] MEDS: TRAMADOL HCL 50 MG TABLET PO PRN ×2 (15:19→20:52)
[2017-11-02 16:00] VITALS: BP 134/49
[2017-11-02] MEDS: METFORMIN HCL 500 MG TABLET PO SCH (17:02)
[2017-11-02 18:56] VITALS: BP 130/61
[2017-11-02] MEDS: FINASTERIDE 5 MG TABLET PO SCH (20:52)
[2017-11-02] MEDS: ATORVASTATIN CALCIUM 40 MG TABLET PO SCH (20:52)
[2017-11-02] MEDS: ***HM*** (Alfuzosin HCl 10 MG) PO SCH (20:52)
[2017-11-02] MEDS: TAMSULOSIN HCL 0.4 MG CAP.ER.24H PO SCH (20:52)
[2017-11-02 22:40] VITALS: BP 117/53
[2017-11-03 04:00] VITALS: BP 115/60
[2017-11-03 04:25] LABS: POTASSIUM 3.8 mmol/L (3.5-5.1)
[2017-11-03 04:27] LABS: HEMATOCRIT 22.4 % (42-54); MEAN CORPUSCULAR HEMOGLOBIN 33.9 pg (27.0-33.0); MEAN CORPUSCULAR HGB CONC 38.1 g/dL (32.0-36.0); MEAN CORPUSCULAR VOLUME 88.9 fL (79-99); PLATELET COUNT (AUTO) 160 K/uL (130-400); RED BLOOD CELL COUNT(AUTO) 2.51 MIL/uL (4.50-6.20); RED CELL DISTRIBUTION WIDTH 14.2 % (11.0-15.5); WHITE BLOOD COUNT (AUTO) 10.8 K/uL (4.8-10.8)
[2017-11-03 04:45] LABS: B-TYPE NATRIURETIC PEPTIDE 55 pg/mL (0-100)
[2017-11-03] MEDS: INSULIN HUMULIN R 100 UNIT/ML 3ML SQ SCH ×4 (05:41→20:28)
[2017-11-03 07:33] VITALS: BP 130/51
[2017-11-03] MEDS: PANTOPRAZOLE SODIUM 40 MG TABLET.DR PO SCH (08:21)
[2017-11-03] MEDS: ASPIRIN 81MG TAB.CHEW PO SCH (08:21)
[2017-11-03] MEDS: AMIODARONE HCL 200 MG TABLET PO SCH ×2 (08:21→20:16)
[2017-11-03] MEDS: GLYBURIDE 5 MG TABLET PO SCH ×2 (08:21→16:59)
[2017-11-03] MEDS: FUROSEMIDE 10 MG/ML 2ML VIAL IV SCH (08:22)
[2017-11-03] MEDS: POTASSIUM CHLORIDE 20 MEQ ERTAB PO SCH (08:22)
[2017-11-03] MEDS: METOPROLOL TARTRATE 25 MG TAB PO SCH ×2 (08:22→20:16)
[2017-11-03 10:40] VITALS: BP 123/54
[2017-11-03 16:12] VITALS: BP 129/50
[2017-11-03] MEDS: METFORMIN HCL 500 MG TABLET PO SCH (16:59)
[2017-11-03] MEDS: FUROSEMIDE 20 MG TABLET PO SCH (16:59)
[2017-11-03] MEDS: LEVOFLOXACIN 500 MG TABLET PO SCH (18:53)
[2017-11-03 19:23] VITALS: BP 129/47
[2017-11-03] MEDS: ATORVASTATIN CALCIUM 40 MG TABLET PO SCH (20:15)
[2017-11-03] MEDS: FINASTERIDE 5 MG TABLET PO SCH (20:15)
[2017-11-03] MEDS: TAMSULOSIN HCL 0.4 MG CAP.ER.24H PO SCH (20:16)
[2017-11-03] MEDS: ***HM*** (Alfuzosin HCl 10 MG) PO SCH (20:29)
[2017-11-03 23:43] VITALS: BP 121/56
[2017-11-04] MEDS: TRAMADOL HCL 50 MG TABLET PO PRN (01:23)
[2017-11-04 04:11] VITALS: BP 126/51
[2017-11-04 06:19] LABS: CREATININE 0.9 mg/dL (0.5-1.5); POTASSIUM 4.4 mmol/L (3.5-5.1)
[2017-11-04] MEDS: INSULIN HUMULIN R 100 UNIT/ML 3ML SQ SCH ×4 (06:25→21:00)
[2017-11-04 07:00] VITALS: BP 120/52
[2017-11-04] MEDS: METOPROLOL TARTRATE 25 MG TAB PO SCH ×2 (08:23→20:26)
[2017-11-04] MEDS: FUROSEMIDE 20 MG TABLET PO SCH (08:23)
[2017-11-04] MEDS: ASPIRIN 81MG TAB.CHEW PO SCH (08:24)
[2017-11-04] MEDS: PANTOPRAZOLE SODIUM 40 MG TABLET.DR PO SCH (08:24)
[2017-11-04] MEDS: AMIODARONE HCL 200 MG TABLET PO SCH (08:24)
[2017-11-04] MEDS: GLYBURIDE 5 MG TABLET PO SCH ×2 (08:24→17:11)
[2017-11-04] MEDS: POTASSIUM CHLORIDE 20 MEQ ERTAB PO SCH (08:24)
[2017-11-04 11:00] VITALS: BP 122/55
[2017-11-04 16:00] VITALS: BP 128/60
[2017-11-04] MEDS: METFORMIN HCL 500 MG TABLET PO SCH (16:59)
[2017-11-04] MEDS: LEVOFLOXACIN 500 MG TABLET PO SCH (17:11)
[2017-11-04 19:28] VITALS: BP 116/56
[2017-11-04] MEDS: ATORVASTATIN CALCIUM 40 MG TABLET PO SCH (20:26)
[2017-11-04] MEDS: FINASTERIDE 5 MG TABLET PO SCH (20:26)
[2017-11-04] MEDS: TAMSULOSIN HCL 0.4 MG CAP.ER.24H PO SCH (20:26)
[2017-11-04] MEDS: ***HM*** (Alfuzosin HCl 10 MG) PO SCH (21:00)
[2017-11-04 23:34] VITALS: BP 105/57
[2017-11-05 04:03] VITALS: BP 124/52
[2017-11-05 04:08] LABS: HEMATOCRIT 22.7 % (42-54); MEAN CORPUSCULAR HEMOGLOBIN 33.3 pg (27.0-33.0); MEAN CORPUSCULAR HGB CONC 37.2 g/dL (32.0-36.0); MEAN CORPUSCULAR VOLUME 89.4 fL (79-99); PLATELET COUNT (AUTO) 183 K/uL (130-400); RED BLOOD CELL COUNT(AUTO) 2.54 MIL/uL (4.50-6.20); RED CELL DISTRIBUTION WIDTH 14.2 % (11.0-15.5)
[2017-11-05 04:14] LABS: CREATININE 0.9 mg/dL (0.5-1.5); POTASSIUM 3.9 mmol/L (3.5-5.1)
[2017-11-05 05:14] LABS: B-TYPE NATRIURETIC PEPTIDE 80 pg/mL (0-100)
[2017-11-05] MEDS: INSULIN HUMULIN R 100 UNIT/ML 3ML SQ SCH ×4 (07:30→20:36)
[2017-11-05 07:46] VITALS: BP 119/58
[2017-11-05] MEDS: GLYBURIDE 5 MG TABLET PO SCH ×2 (08:51→17:32)
[2017-11-05] MEDS: ASPIRIN 81MG TAB.CHEW PO SCH (08:51)
[2017-11-05] MEDS: METOPROLOL TARTRATE 25 MG TAB PO SCH ×2 (08:52→20:53)
[2017-11-05] MEDS: AMIODARONE HCL 200 MG TABLET PO SCH (08:52)
[2017-11-05] MEDS: FUROSEMIDE 20 MG TABLET PO SCH (08:53)
[2017-11-05] MEDS: PANTOPRAZOLE SODIUM 40 MG TABLET.DR PO SCH (08:53)
[2017-11-05] MEDS: POTASSIUM CHLORIDE 20 MEQ ERTAB PO SCH (08:54)
[2017-11-05 11:18] VITALS: BP 124/71
[2017-11-05 16:16] VITALS: BP 114/54
[2017-11-05] MEDS: LEVOFLOXACIN 500 MG TABLET PO SCH (17:31)
[2017-11-05] MEDS: METFORMIN HCL 500 MG TABLET PO SCH (17:31)
[2017-11-05 20:09] VITALS: BP 128/65
[2017-11-05] MEDS: ***HM*** (Alfuzosin HCl 10 MG) PO SCH (20:51)
[2017-11-05] MEDS: ATORVASTATIN CALCIUM 40 MG TABLET PO SCH (20:52)
[2017-11-05] MEDS: TAMSULOSIN HCL 0.4 MG CAP.ER.24H PO SCH (20:53)
[2017-11-05] MEDS: FINASTERIDE 5 MG TABLET PO SCH (20:53)
[2017-11-05 23:56] VITALS: BP 111/57
[2017-11-06 04:59] VITALS: BP 127/57
[2017-11-06] MEDS: INSULIN HUMULIN R 100 UNIT/ML 3ML SQ SCH ×3 (06:24→18:14)
[2017-11-06 07:24] VITALS: BP 119/55
[2017-11-06] MEDS: GLYBURIDE 5 MG TABLET PO SCH ×2 (08:16→16:59)
[2017-11-06] MEDS: PANTOPRAZOLE SODIUM 40 MG TABLET.DR PO SCH (08:42)
[2017-11-06] MEDS: FUROSEMIDE 20 MG TABLET PO SCH (08:42)
[2017-11-06] MEDS: ASPIRIN 81MG TAB.CHEW PO SCH (08:42)
[2017-11-06] MEDS: AMIODARONE HCL 200 MG TABLET PO SCH (08:42)
[2017-11-06] MEDS: METOPROLOL TARTRATE 25 MG TAB PO SCH ×2 (08:43→19:11)
[2017-11-06] MEDS: POTASSIUM CHLORIDE 20 MEQ ERTAB PO SCH (08:43)
[2017-11-06 11:00] VITALS: BP 126/72
[2017-11-06] MEDS ORDERED: FURO20TA6 PO (12:26)
[2017-11-06] MEDS ORDERED: METO25 PO (12:26)
[2017-11-06] MEDS ORDERED: AMIO200T44 PO (12:26)
[2017-11-06 16:15] VITALS: BP 124/72
[2017-11-06] MEDS: METFORMIN HCL 500 MG TABLET PO SCH (16:59)
[2017-11-06] MEDS: LEVOFLOXACIN 500 MG TABLET PO SCH (16:59)
[2017-11-06] MEDS: ATORVASTATIN CALCIUM 40 MG TABLET PO SCH (19:11)
[2017-11-06] MEDS: TAMSULOSIN HCL 0.4 MG CAP.ER.24H PO SCH (19:11)
[2017-11-06] MEDS: FINASTERIDE 5 MG TABLET PO SCH (19:11)
== END 2017-11-06 19:05 | disposition home or self-care (01) | DRG 217 ==
LOC: DAH 08:00 → OBSVTOIN 08:01 → DAHIP 08:01 → 2AH 20:04 → OBSVTOIN 10-24 13:47 → INTOOBSV 10-24 13:47 → 2CV 10-24 14:54 → 2BH 10-25 13:04 → 2AH 11-03 17:44
PROVIDERS: ADMIT Internal Medicine Cardiovascular Disease; ATTEND Internal Medicine Cardiovascular Disease
PROC: B2111ZZ Fluoroscopy of Multiple Coronary Arteries using Low Osmolar Contrast (ICD-10-PCS; 2017-10-22)
PROC: 0W9930Z Drainage of Right Pleural Cavity with Drainage Device, Percutaneous Approach (ICD-10-PCS; 2017-10-22)
PROC: 5A1221Z Performance of Cardiac Output, Continuous (ICD-10-PCS; 2017-10-24)
PROC: 5A09357 Assistance with Respiratory Ventilation, Less than 24 Consecutive Hours, Continuous Positive Airway Pressure (ICD-10-PCS; 2017-10-24)
PROC: 30233R1 Transfusion of Nonautologous Platelets into Peripheral Vein, Percutaneous Approach (ICD-10-PCS; 2017-10-24)
PROC: 02RF08Z Replacement of Aortic Valve with Zooplastic Tissue, Open Approach (ICD-10-PCS; principal; 2017-10-24 14:05)
PROC: 5A09357 Assistance with Respiratory Ventilation, Less than 24 Consecutive Hours, Continuous Positive Airway Pressure (ICD-10-PCS; 2017-10-25)
PROC: 5A09357 Assistance with Respiratory Ventilation, Less than 24 Consecutive Hours, Continuous Positive Airway Pressure (ICD-10-PCS; 2017-10-26)
DX: I35.0 Nonrheumatic aortic (valve) stenosis (principal); I50.32 Chronic diastolic (congestive) heart failure; I13.0 Hypertensive heart and chronic kidney disease with heart failure and stage 1 through stage 4 chronic kidney disease, or unspecified chronic kidney disease; J95.89 Other postprocedural complications and disorders of respiratory system, not elsewhere classified; D62 Acute posthemorrhagic anemia; I47.1 Supraventricular tachycardia; I48.92 Unspecified atrial flutter; J93.82 Other air leak; J98.11 Atelectasis; S22.39XA Fracture of one rib, unspecified side, initial encounter for closed fracture; J94.2 Hemothorax; D69.6 Thrombocytopenia, unspecified; E11.22 Type 2 diabetes mellitus with diabetic chronic kidney disease; I48.0 Paroxysmal atrial fibrillation; E11.9 Type 2 diabetes mellitus without complications; D72.829 Elevated white blood cell count, unspecified; E03.9 Hypothyroidism, unspecified; E78.5 Hyperlipidemia, unspecified; E87.6 Hypokalemia; I25.10 Atherosclerotic heart disease of native coronary artery without angina pectoris; I80.8 Phlebitis and thrombophlebitis of other sites; K21.9 Gastro-esophageal reflux disease without esophagitis; N18.9 Chronic kidney disease, unspecified; Y83.8 Other surgical procedures as the cause of abnormal reaction of the patient, or of later complication, without mention of misadventure at the time of the procedure; Z79.82 Long term (current) use of aspirin; Z79.84 Long term (current) use of oral hypoglycemic drugs; Z79.899 Other long term (current) drug therapy; Z83.3 Family history of diabetes mellitus
CPT/HCPCS: 10030; 32555; 36415; 36430; 71045; 71046; 71250; 76942; 76998; 80048; 80061; 81001; 81003; 82330; 82435; 82803; 82947; 82948; 83036; 83605; 83735; 83880; 84100; 84132; 84295; 85018; 85025; 85027; 85347; 85610; 85730; 86850; 86900; 86901; 86922; 88305; 88311; 93005; 93318; 93454; 93880; 94002; 94010; 94150; 94660; 97039; A4218; A4606; A7048; C1760; C1894; G0378; J0171; J0282; J0610; J0697; J1100; J1160; J1200; J1644; J1815; J1885; J1940; J2001; J2250; J2260; J2405; J2704; J2710; J2720; J2930; J3010; J3475; J3480; J3490; J7030; J7040; J7060; P9034; P9045; P9047; Q9967

== ENCOUNTER → 2017-12-12 | Outpatient (CLI) | payer OTHER, MEDICARE ==
[~2017-12-12] MED LIST changes: +AMIO200T44 PO; -DEXAMETHASONE SOD PHOSPHATE 10MG/ML 1ML VIAL ONE; -FENTANYL CITRATE PF 50 MCG/1 ML 2ML VIAL ONE; +FURO20TA6 PO; -GLYCOPYRROLATE 0.2 MG/ML 5 ML VIAL ONE; -LIDOCAINE PF 2% 5ML ABBOJECT ONE; -LISI30TA4 PO; -METF500T6 PO; +METO25 PO; -MIDAZOLAM HCL 1 MG/ML 2ML VIAL ONE; -NEOSTIGMINE 5MG/5ML SYR IV ONE; +NITROGLYCERIN 50 MG/D5% WATER 1 BOT ONE; -ONDANSETRON HCL 4 MG/2 ML VIAL ONE; -PROPOFOL 10 MG/ML 20ML VIAL IV ONE
== END | disposition home or self-care (01) ==
LOC: OIH 13:54
PROVIDERS: ATTEND Thoracic Surgery (Cardiothoracic Vascular Surgery)
DX: J90 Pleural effusion, not elsewhere classified (principal); E04.1 Nontoxic single thyroid nodule; J98.11 Atelectasis
CPT/HCPCS: 71250